=== PATIENT | female | born 1960 | race Caucasian/White ===

== ENCOUNTER → 2020-12-11 16:46 | Outpatient (CLI) | payer OTHER, SELFPAY ==
--- NOTE | ~2020-12-11 | XR_ITS ---
XR finger 1st LT min 2V 12/11/2020 18:58 INDICATION: Left first finger pain PROCEDURE: 3 views left first finger COMPARISON: No prior studies for comparison. FINDINGS: Fracture, dislocation or subluxation is not identified. There is mild osteoarthritis of the first CMC and MCP joints. The soft tissues appear within normal limits. No foreign bodies are ident ified. IMPRESSION: 1: NO ACUTE BONE OR JOINT ABNORMALITY IDENTIFIED. Reviewed, dictated and finalized at location A. DRIVER
== END ==
PROVIDERS: Visit Provider Physician Assistant
DX: M79.645 Pain in left finger(s) (principal)
CPT/HCPCS: 73140

== ENCOUNTER → 2022-01-12 15:58 | Outpatient (CLI) | payer OTHER, SELFPAY ==
--- NOTE | ~2022-01-12 | XR_ITS ---
EXAMINATION: XR knee LT min 4V DATE: 01/12/2022 16:31 INDICATION: Left knee pain. TECHNIQUE: 4 views of left knee including standing views were obtained. COMPARISON: None. FINDINGS: Bone alignment is normal. No fracture. There is mild osteoarthritis of medial compartment, severe osteoarthritis of lateral compartment, and moderate osteoarthritis of patellofemoral compartme nt. There is a small knee joint effusion. IMPRESSION: 1. Severe left knee osteoarthritis. 2. Small left knee joint effusion. Reviewed, dictated and finalized at location A.
--- NOTE | ~2022-01-12 | XR_ITS ---
EXAMINATION: XR knee RT min 4V DATE: 01/12/2022 16:31 INDICATION: Right knee pain. TECHNIQUE: 4 views of right knee including standing views were obtained. COMPARISON: None. FINDINGS: Bone alignment is normal. No fracture. There is mild osteoarthritis of medial and patellofe moral compartments and moderate osteoarthritis of lateral compartment. There is a moderate-sized knee joint effusion. IMPRESSION: 1. Moderate right knee osteoarthritis. 2. Moderate-sized right knee joint effusion. Reviewed, dictated and finalized at location A.
== END ==
PROVIDERS: PCP Family Medicine; Visit Provider Physician Assistant
DX: M17.0 Bilateral primary osteoarthritis of knee (principal); M25.461 Effusion, right knee; M25.462 Effusion, left knee
CPT/HCPCS: 73564

== ENCOUNTER → 2023-02-17 13:56 | Outpatient (CLI) | payer OTHER, SELFPAY ==
--- NOTE | ~2023-02-17 | XR_ITS ---
XR knee LT min 4V 02/17/2023 14:15 Indication: Left knee pain Procedure: 4 views left knee Comparison: 01/12/2022 Findings: There is moderate tricompartment osteoarthritis of the left knee. Small knee effusion. No f racture or traumatic malalignment. Impression: 1: Moderate tricompartment osteoarthritis of the left knee. Reviewed, dictated and finalized at location B. Impression: 1: Moderate tricompartment osteoarthritis of the left knee.
--- NOTE | ~2023-02-17 | XR_ITS ---
XR knee RT min 4V 02/17/2023 14:15 Indication: Osteoarthritis of the right knee Procedure: 4 views right knee Comparison: 01/12/2022 Findings: There is moderate tricompartment osteoarthritis. Small joint effusion. No acute fracture or traumatic malalignment. No foreign body. Impression: 1: Moderate polyarticular osteoarthritis of the right knee. Reviewed, dictated and finalized at location B. Impression: 1: Moderate polyarticular osteoarthritis of the right knee.
== END ==
PROVIDERS: PCP Family Medicine; Visit Provider Family Medicine
DX: M17.0 Bilateral primary osteoarthritis of knee (principal)
CPT/HCPCS: 73564

== ENCOUNTER 2024-12-16 11:19 | Outpatient (CLI) | payer OTHER, SELFPAY ==
--- NOTE | ~2024-12-16 | XR_ITS ---
Right Knee Technique: AP, lateral, and sunrise views were obtained. Clinical History: Pain Findings: No fracture or dislocation is seen. Osseous alignment is anatomic. There is moderate latera l joint line spurring. There is moderate patellofemoral compartment spurring. Soft tissues are unrema rkable. No joint effusion is seen. Impression: Moderate degenerative change, predominantly the lateral and patellofemoral compartments. Reviewed, dictated and finalized at location M. Impression: Moderate degenerative change, predominantly the lateral and patellofemoral comp artments.
== END 2024-12-16 11:20 | disposition home or self-care (01) ==
LOC: MICIMG 11:20
PROVIDERS: PCP Nurse Practitioner Family; Visit Provider Nurse Practitioner Family
DX: M17.11 Unilateral primary osteoarthritis, right knee (principal)
CPT/HCPCS: 73562

== ENCOUNTER 2025-02-25 10:30 | Outpatient (CLI) | payer OTHER, SELFPAY ==
--- NOTE | ~2025-02-25 | XR_ITS ---
Clinical Indication: Nicotine dependence PA and lateral views of the chest: Comparison: None Findings: The lungs are clear, without evidence of focal consolidation or pleural effusion. Cardiome diastinal silhouette is within normal limits. Bones and soft tissues are unremarkable. Impression: Normal chest. Reviewed, dictated and finalized at location . Impression: Normal chest.
== END 2025-02-25 10:31 | disposition home or self-care (01) ==
LOC: MICIMG 10:32
PROVIDERS: PCP Nurse Practitioner Family; Visit Provider Nurse Practitioner Family
DX: Z87.891 Personal history of nicotine dependence (principal)
CPT/HCPCS: 71046